=== PATIENT | male | born 1975 | race Caucasian/White ===

== ENCOUNTER 2017-03-19 05:25 | Day surgery (SDC) | payer BC ==
[2017-03-18 15:33] LABS: BASOPHILS 0.5 % (0-2); EOSINOPHILS 2.1 % (0-7); HEMATOCRIT 42.1 % (42.0-54.0); HEMOGLOBIN 14.3 g/dL (13.5-17.5); IMMATURE GRANULOCYTES 0.1 % (0-5); LYMPHOCYTES 37.9 % (15-50); MCH 32.1 pg (26.0-34.0); MCV 94.4 fL (80.0-100.0); MEAN PLATELET VOLUME 11.9 fL (7.4-10.4); MONOCYTES 11.2 % (2-11); NEUTROPHILS 48.2 % (40-80); RBC 4.46 10x6/uL (4.20-6.10); RDW 13.3 % (11.5-14.5); WBC 8.2 10x3/uL (4.8-10.8)
[2017-03-18 15:34] LABS: PLATELET COUNT 212 10x3/uL (130-400)
[2017-03-18 15:45] LABS: CALC OSMOLALITY 288 mosm/kg (275-300); CALCIUM 8.5 mg/dL (8.5-10.1); CHLORIDE - SERUM 105 mmol/L (98-107); GLUCOSE 104 mg/dL (74-106); POTASSIUM - SERUM 3.9 mmol/L (3.5-5.1); SODIUM 145 mmol/L (136-145); UREA NITROGEN 13 mg/dL (7-18); eGFR NON AFRICAN AMERICAN 88 mL/min (90-120)
[~2017-03-19] VITALS: Ht 185.4 cm; Wt 89.4 kg
[~2017-03-19 05:25] MED LIST: ALLEGRA-D1 TAB.SR . PO; NASACORT10.8 ML NASAL; NASONEX NASAL S17 GM NS; PREDNISONE10 MG PO
[2017-03-19] MEDS ORDERED: PROTONIX40 MG PO (05:50)
[2017-03-19 06:01] VITALS: BP 128/74; Ht 185.4 cm; Wt 89.4 kg
--- NOTE | 2017-03-19 06:30 | NUR ---
ANESTHESIA NOTIFIED OF 1/2 CUP COFFEE, DELAYED UNTIL 829, PATIENT AND FAMILY NOTIFIED
[2017-03-19] MEDS ORDERED: HYDROCODONE-APA1 TAB PO (09:54)
--- NOTE | 2017-03-19 16:00 | NUR ---
1248--PT COMPLAINS OF PAIN, NORCO 10/325MG X1 TAB GIVEN PO. ERICK RN 1300--PT VOIDS WITHOUT DIFFICULTY, IV DC'D. ERICK NORTON 1320--DISCHARGE INSTRUCTIONS GIVEN, PT VERBALIZES UNDERSTANDING. PT OFF UNIT VIA WC. ERICK NORTON
--- NOTE | 2017-03-24 12:19 | OP ---
PATIENT NAME: CLEMENTINE CHI MEDICAL RECORD: [id number] :77 LOCATION:[id number] ADMISSION DATE: SURGEON: RAUL HILL MD DATE OF OPERATION: 03/19/2017 DATE OF OPERATION: 03/19/2017 PREOPERATIVE DIAGNOSES: 1. Bilateral inguinal hernias. 2. Umbilical hernia. 3. Tobacco dependence syndrome. POSTOPERATIVE DIAGNOSES: 1. Bilateral inguinal hernias. 2. Umbilical hernia. 3. Tobacco dependence syndrome. PROCEDURE: 1. Bilateral inguinal hernia repairs with medium PHS mesh. 2. Umbilical hernia repair without mesh. SURGEON: Raul Hill MD REPORT OF PROCEDURE: The patient's abdomen was prepped and draped in sterile fashion. The left inguinal hernia was approached first. An oblique incision was made above the inguinal ligament. Electrocautery was used to dissect through the subcutaneous tissue to the external oblique fascia. This fascia was opened up to the external ring using Metzenbaum scissors and electrocautery. The spermatic cord was elevated and a Compton was placed around it. The ilioinguinal nerve was found and high ligated. The patient had a direct hernia defect. We opened up the inguinal floor and spread out the preperitoneal space of Retzius. A medium PHS mesh was inserted and sutured down on all 4 sides using interrupted 0 Vicryl. The wound was then irrigated out with normal saline. The external oblique fascia was closed with running 2-0 Vicryl, Geri's was closed with interrupted 3-0 Vicryl and the skin was closed with subcutaneous 5-0 Monocryl. We then approached the right inguinal hernia. An oblique incision was made above the inguinal ligament. Electrocautery was used to dissect through the subcutaneous tissue to the external oblique fascia. This fascia was opened up to the external ring using electrocautery. The spermatic cord was elevated and a Compton was placed around it. The patient had a direct hernia defect. The ilioinguinal nerve was found and high ligated. We then opened up the inguinal floor and opened up the preperitoneal space of Retzius. A medium PHS mesh was inserted and sutured down on all 4 sides using interrupted 0 Vicryl. The wound was then irrigated out with normal saline. The external oblique fascia was closed with running 2-0 Vicryl, Geri's was closed with interrupted 3-0 Vicryl and the skin was closed with running subcutaneous 5-0 Monocryl. We then approached the umbilical hernia. A semicircular incision was made on the inferior aspect of the umbilicus. Electrocautery was used to dissect through the subcutaneous tissues and through the hernia sac, which was on the base of the umbilicus. The hernia was small and contained fatty tissue. This was easily pushed back into the abdominal cavity. We freed up the edges of the hernia sac to the fascial edges and measured it out at 1 x 1.3 cm. The hernia defect was closed transversely with interrupted 0 Prolenes times 3. The umbilicus was then tacked down using interrupted 3-0 Vicryl. Subcutaneous tissues were reapproximated with interrupted 3-0 Vicryl and the skin was closed OPERATIVE REPORT [id number] CLEMENTINE CHI with running subcutaneous 5-0 Monocryl. A total of 10 mL of 0.25% Marcaine plain was infused in all the incisions and the wounds were dressed appropriately. COMPLICATIONS: None. CONDITION: Stable. ANESTHESIA: General endotracheal and local. BLOOD LOSS: Minimal. TRANSINT:[id number] Voice Confirmation ID: [id number] DOCUMENT ID: [id number] RAUL HILL MD at 1219 CC: BARRY KERR DO [id number] DICTATION DATE: 03/19/17 1001 [facility] BOARDING ROOM: 03/19/17 1121 [facility] 03/19/17 [id number] [place] [address]
== END 2017-03-19 13:05 | disposition home or self-care (01) ==
LOC: D.OPS 05:25 → D.PAN 07:30 → D.OPS 11:00
PROVIDERS: Surgery
DX: K40.20 Bilateral inguinal hernia, without obstruction or gangrene, not specified as recurrent (principal); K42.9 Umbilical hernia without obstruction or gangrene; Z01.812 Encounter for preprocedural laboratory examination; F17.200 Nicotine dependence, unspecified, uncomplicated

== ENCOUNTER 2018-12-23 08:39 | Inpatient (IN) | payer MEDICAID ==
[~2018-12-23] VITALS: Ht 185.4 cm; Wt 81.8 kg
[~2018-12-23 08:39] MED LIST changes: +HYDROCODONE-APA1 TAB PO; +PROTONIX40 MG PO
[2018-12-23 09:28] LABS: BASOPHILS 0.1 % (0-2); EOSINOPHILS 2.2 % (0-7); HEMATOCRIT 45.2 % (42.0-54.0); HEMOGLOBIN 16.2 g/dL (13.5-17.5); IMMATURE GRANULOCYTES 0.1 % (0-5); LYMPHOCYTES 12.2 % (15-50); MCH 32.7 pg (26.0-34.0); MCHC 35.8 g/dL (31.0-37.0); MCV 91.1 fL (80.0-100.0); MEAN PLATELET VOLUME 11.8 fL (7.4-10.4); MONOCYTES 9.1 % (2-11); NEUTROPHILS 76.3 % (40-80); PLATELET COUNT 217 10x3/uL (130-400); RBC 4.96 10x6/uL (4.20-6.10); RDW 13.6 % (11.5-14.5)
[2018-12-23 09:45] LABS: ALBUMIN 3.8 g/dL (3.4-5.0); ALKALINE PHOSPHATASE 164 U/L (46-116); ALT (SGPT) 30 U/L (10-68); BILIRUBIN - TOTAL 0.61 mg/dL (0.2-1.3); CALC OSMOLALITY 278 mosm/kg (275-300); CALCIUM 8.6 mg/dL (8.5-10.1); CARBON DIOXIDE 27.6 mmol/L (21.0-32.0); CHLORIDE - SERUM 102 mmol/L (98-107); GLUCOSE 114 mg/dL (74-106); POTASSIUM - SERUM 4.1 mmol/L (3.5-5.1); PROTEIN - SERUM 7.2 g/dL (6.4-8.2); SODIUM 140 mmol/L (136-145); UREA NITROGEN 10 mg/dL (7-18); eGFR NON AFRICAN AMERICAN 87 mL/min (90-120)
--- NOTE | 2018-12-23 10:28 | NUR ---
REPORT CALLED TO CIERRA LEPE. PT TO BE ADMITTED TO ROOM 2204.
--- NOTE | 2018-12-23 11:00 | NUR ---
PT RECD FROM ER. AAO X 4. FAMILY IS AT BEDSIDE. PT DENIES PRESENCE OF PAIN/N/V AT THIS TIME. PIV INFUSING WITHOUT DIFFICULTY. BED IS IN THE LOWEST POSITION. CALL LIGHT AND BEDSIDE TABLE ARE WITHIN REACH. SIDE RAILS X 2. PT DENIES FURTHER NEEDS. WILL CONT TO MONITOR.
[2018-12-23 11:23] VITALS: BP 133/87; Ht 185.4 cm; Wt 81.8 kg
[2018-12-23 12:52] VITALS: BP 133/87
[2018-12-23 17:49] VITALS: BP 123/67
[2018-12-23 21:26] VITALS: BP 142/98
[2018-12-24] VITALS (13 sets, daily range): BP systolic 98–152; BP diastolic 41–97
--- NOTE | 2018-12-24 03:44 | NUR ---
I have reviewed this patient and I concur with the Shift Assessment completed by the Licensed Practical Nurse today this shift.
[2018-12-24 06:11] LABS: BASOPHILS 0.3 % (0-2); EOSINOPHILS 5.2 % (0-7); HEMATOCRIT 42.7 % (42.0-54.0); HEMOGLOBIN 14.6 g/dL (13.5-17.5); IMMATURE GRANULOCYTES 0.2 % (0-5); MCH 31.7 pg (26.0-34.0); MCHC 34.2 g/dL (31.0-37.0); MCV 92.6 fL (80.0-100.0); MEAN PLATELET VOLUME 12.3 fL (7.4-10.4); MONOCYTES 16.6 % (2-11); NEUTROPHILS 55.7 % (40-80); PLATELET COUNT 183 10x3/uL (130-400); RBC 4.61 10x6/uL (4.20-6.10); RDW 13.8 % (11.5-14.5); WBC 10.7 10x3/uL (4.8-10.8)
[2018-12-24 06:27] LABS: ALBUMIN 3.3 g/dL (3.4-5.0); ALKALINE PHOSPHATASE 142 U/L (46-116); CALC OSMOLALITY 276 mosm/kg (275-300); CALCIUM 8.1 mg/dL (8.5-10.1); CARBON DIOXIDE 32.2 mmol/L (21.0-32.0); CHLORIDE - SERUM 104 mmol/L (98-107); CREATININE - SERUM 1.1 mg/dL (0.6-1.3); GLUCOSE 94 mg/dL (74-106); POTASSIUM - SERUM 4.5 mmol/L (3.5-5.1); PROTEIN - SERUM 6.5 g/dL (6.4-8.2); SODIUM 139 mmol/L (136-145); UREA NITROGEN 10 mg/dL (7-18); eGFR NON AFRICAN AMERICAN 78 mL/min (90-120)
[2018-12-24 06:28] LABS: ALT (SGPT) 19 U/L (10-68)
--- NOTE | 2018-12-24 08:00 | NUR ---
IN ROOM. PATIENT PRE-OPPED. CL IN REACH. NEW IV ACCESS IN RFA. WCTM
--- NOTE | 2018-12-24 20:30 | NUR ---
PT ALERT & ORIENTED. DRESSING TO MAYTE/SCROTAL AREA C/D/I. PT RATES PAIN 1-2/10. NO NEEDS AT THIS TIME. CONTACT ISOLATION PRECAUTIONS OBSERVED.
[2018-12-25 04:00] VITALS: BP 147/70
[2018-12-25 05:39] LABS: BASOPHILS 0.2 % (0-2); EOSINOPHILS 4.4 % (0-7); HEMATOCRIT 40.4 % (42.0-54.0); HEMOGLOBIN 13.9 g/dL (13.5-17.5); IMMATURE GRANULOCYTES 0.2 % (0-5); LYMPHOCYTES 24.4 % (15-50); MCH 31.8 pg (26.0-34.0); MCHC 34.4 g/dL (31.0-37.0); MCV 92.4 fL (80.0-100.0); MEAN PLATELET VOLUME 12.1 fL (7.4-10.4); MONOCYTES 11.7 % (2-11); NEUTROPHILS 59.1 % (40-80); PLATELET COUNT 182 10x3/uL (130-400); RBC 4.37 10x6/uL (4.20-6.10); RDW 13.5 % (11.5-14.5); WBC 10.6 10x3/uL (4.8-10.8)
[2018-12-25 06:02] LABS: CALC OSMOLALITY 277 mosm/kg (275-300); CALCIUM 8.2 mg/dL (8.5-10.1); CARBON DIOXIDE 28.4 mmol/L (21.0-32.0); CHLORIDE - SERUM 106 mmol/L (98-107); GLUCOSE 115 mg/dL (74-106); SODIUM 139 mmol/L (136-145); UREA NITROGEN 11 mg/dL (7-18); eGFR NON AFRICAN AMERICAN 87 mL/min (90-120)
[2018-12-25 08:47] VITALS: BP 119/55
[2018-12-25] MEDS ORDERED: SULFAMETHOXAZOL1 TA2 PO (10:57)
[2018-12-25] MEDS ORDERED: MUPIROCIN22 GM TOPICAL (10:58)
[2018-12-25 12:45] VITALS: BP 128/69
--- NOTE | 2018-12-25 15:59 | NUR ---
IV THERAPY DC'ED FROM RFA WITH TIP INTACT. DISCHARGE INSTRUCTIONS GIVEN. PATIENT VERABLIZED UNDERSTANDING. WAITING ON HIS TO PICK HIM UP. ADDITIONAL PRESCRIPTION FOR HYDROCODONE GIVEN.
[2018-12-25] MEDS ORDERED: HYDROCODON-ACE1 EAC7 PO (16:05)
--- NOTE | 2018-12-28 10:07 | OP ---
PATIENT NAME: CLEMENTINE CHI MEDICAL RECORD: [id number] :77 LOCATION:[id number].[id number] ADMISSION DATE:12/23/18 SURGEON: VIET HILL MD DATE OF OPERATION: 12/24/2018 PREOPERATIVE DIAGNOSIS: Right groin abscess. POSTOPERATIVE DIAGNOSIS: Right groin abscess. PROCEDURE: I&D of right groin abscess. SURGEON: Viet Hill MD REPORT OF PROCEDURE: The patient's right groin was prepped and draped in sterile fashion. A small incision was made over the area of fluctuance and purulent material was immediately encountered. Cultures were taken times 2. The wound was probed and we could see there was a little bit of tunneling. We irrigated out the wound with peroxide and then packed the wound with quarter inch packing strips dipped in peroxide. COMPLICATIONS: None. CONDITION: Stable. ANESTHESIA: TIVA and local. BLOOD LOSS: Minimal. TRANSINT:[id number] Voice Confirmation ID: [id number] DOCUMENT ID: [id number] VIET HILL MD at 1007 CC: [id number] DICTATION DATE: 12/24/18 0937 [employer] SERVICE TECHNICIAN: 12/24/18 1206 DIS IN 12/25/18 [id number] [place] [address]
== END 2018-12-25 17:11 | disposition home or self-care (01) | DRG 580 ==
LOC: D.ER 08:39 → D.MS 10:20
PROVIDERS: Family Medicine; Surgery; ADMIT Internal Medicine Nephrology; ATTEND Internal Medicine Nephrology
PROC: 0Y950ZZ Drainage of Right Inguinal Region, Open Approach (ICD-10-PCS; principal; 2018-12-24 09:15)
DX: L02.214 Cutaneous abscess of groin (principal); F17.203 Nicotine dependence unspecified, with withdrawal; L02.215 Cutaneous abscess of perineum; L03.315 Cellulitis of perineum; F12.929 Cannabis use, unspecified with intoxication, unspecified; B95.61 Methicillin susceptible Staphylococcus aureus infection as the cause of diseases classified elsewhere

== ENCOUNTER 2020-01-06 20:48 | Emergency (ER) | payer MEDICAID ==
[~2020-01-06] VITALS: Ht 185.4 cm; Wt 77.3 kg
[~2020-01-06 20:48] MED LIST changes: +HYDROCODON-ACE1 EAC7 PO; +MUPIROCIN22 GM TOPICAL; +SULFAMETHOXAZOL1 TA2 PO
[2020-01-06 20:55] VITALS: Ht 185.4 cm; Wt 77.3 kg
[2020-01-06] MEDS ORDERED: PREDNISONE20 MG PO (21:10)
[2020-01-06] MEDS ORDERED: VOLTAREN75 MG PO (21:10)
[2020-01-06] MEDS ORDERED: LIORESAL 10 MG10 MG PO (21:10)
[2020-01-06 22:30] VITALS: BP 147/74
== END 2020-01-06 22:30 | disposition home or self-care (01) ==
LOC: D.ER 20:48
DX: S39.012A Strain of muscle, fascia and tendon of lower back, initial encounter (principal); M48.061 Spinal stenosis, lumbar region without neurogenic claudication; X50.9XXA Other and unspecified overexertion or strenuous movements or postures, initial encounter; Y93.9 Activity, unspecified; Y92.9 Unspecified place or not applicable

== ENCOUNTER → 2020-10-11 14:26 | Outpatient (CLI) | payer MEDICAID ==
[2020-01-06 20:55] VITALS: BMI 22.4
[~2020-10-11 14:26] MED LIST changes: +LIORESAL 10 MG10 MG PO; +PREDNISONE20 MG PO; +VOLTAREN75 MG PO
== END | disposition home or self-care (01) ==
LOC: D.CT 14:26
PROVIDERS: ATTEND Family Medicine
DX: I31.9 Disease of pericardium, unspecified (principal)